=== PATIENT | male | born 1950 | race Two or more races ===

== ENCOUNTER 2025-05-31 13:19 | Emergency (ER) | payer MEDICARE, OTHER, SELFPAY ==
[2025-05-31 13:23] VITALS: BP 156/68
[2025-05-31 13:47] LABS: Hematocrit 42.6 % (39.0-52.0); Hemoglobin 13.5 g/dL (13.0-18.0); Mean Corp Hgb Conc. 31.7 g/dL (33.0-37.0); Mean Corpuscular Volume 87.5 fL (80.0-94.0); Nucleated Red Blood Cells % 0 % (-); Platelet Count 217 10^3/uL (130-400); Red Cell Dist. Width 14.2 % (11.5-14.5)
[2025-05-31 13:57] LABS: ALT (SGPT) 17 U/L (0-50); AST (SGOT) 19 U/L (17-59); Albumin 4.5 g/dl (3.5-5.0); Alkaline Phosphatase 76 U/L (38-126); Blood Urea Nitrogen 17 mg/dl (9-20); Calcium 9.3 mg/dl (8.4-10.2); Carbon Dioxide 20 mmol/L (22-30); Chloride 105 mmol/L (98-107); Glucose 186 mg/dl (70-99); Potassium 4.3 mmol/L (3.5-5.1); Sodium 135 mmol/L (135-145); Total Protein 7.4 g/dl (6.3-8.2); eGFR > 60.00
[2025-05-31 14:02] VITALS: BP 175/74
[2025-05-31 14:06] LABS: Troponin I < 0.012 ng/ml
[2025-05-31 15:00] VITALS: BP 125/67
--- NOTE | 2025-05-31 16:03 | ED.GENMED ---
History of Present Illness
<Angel East PA-C - Last Filed: 05/31/25 16:15>
General
Chief Complaint: Chest Pain
Source: patient
Exam Limitations: none
Time Seen by Provider: 05/31/25 14:40
History of Present Illness
History of Present Illness:
75-year-old male presents complaining of intermittent chest discomfort over the past several days. Today it was made worse prior to eating. He had trouble eating because of this pain. He also has trouble breathing because of his pain. Pain does
not radiate to the back no vomiting. No fever. He has a history of pye-gbpitul-jksxtteta diabetes, GERD. No fevers. No urinary symptoms. No other complaints
Past History
<Angel East PA-C - Last Filed: 05/31/25 16:15>
Past History
ED Past Medical History: GERD, Hypercholesterolemia and NIDDM
Social History
Alcohol: None
Phy Exam
<Angel East PA-C - Last Filed: 05/31/25 16:15>
Physical Exam
Physical Exam:
General: Well-appearing male no acute respiratory distress
HEENT: Normal cephalic atraumatic
Heart: Regular rate and rhythm
Lungs: Clear no wheeze
Abdomen is soft nontender nondistended
Extremities: No cyanosis
Scores
<Efrem Moncada PA-C - Last Filed: 05/31/25 20:59>
Heart Score for Chest Pain Patients
STEMI patient?: No
History: Slightly or Non-Suspicious
ECG: Normal
Age: >/= 65 years
Risk Factors: 1 or 2 Risk Factors
Troponin: </= Normal Limit
Heart Score for Chest Pain Patients: 3
Heart Score Risk: 2.5% MACE over next 6 weeks
Course
<Angel East PA-C - Last Filed: 05/31/25 16:15>
Orders/Labs/Results
Orders:
Orders
05/31/25 13:22
EKG [Electrocardiogram (*1)] Urgent
Reason for Study: Chest Pain
05/31/25 13:23
EKG- Treatment ONCE
05/31/25 13:30
Complete Blood Count/With Diff Urgent
Comprehensive Metabolic Panel Urgent
Lipase Urgent
Comment: ADD ON
Troponin I Urgent
05/31/25 14:52
CT Chest PE Study Urgent
Comment:
Reason For Exam: chest pain
US Abdomen Complete/Upper Urgent
Comment:
Reason For Exam: RUQ pain
05/31/25 16:14
Add On- LAB Urgent
Tests Added?: lipase
05/31/25 16:35
Troponin I Urgent
Abnormal Lab Results
05/31/25
13:30
WBC 11.4 H 10^3/uL
(4.8-10.8)
MCHC 31.7 L g/dL
(33.0-37.0)
MPV 10.7 H fL
(7.4-10.4)
Absolute Neuts (auto) 9.5 H 10^3/uL
(1.4-6.5)
Neutrophils % 83.6 H %
(42.2-75.2)
Lymphocytes % 11.3 L %
(20.5-51.1)
Carbon Dioxide 20 L mmol/L
(22-30)
Glucose 186 H mg/dl
(70-99)
05/31/25 13:30
05/31/25 13:30
Vital Signs
Initial and Last Documented VS:
Initial Vital Signs
Temp Pulse Resp BP Pulse Ox
98.5 F 75 16 156/68 100
05/31/25 13:23 05/31/25 13:23 05/31/25 13:23 05/31/25 13:23 05/31/25 13:23
Last Documented Vital Signs
Temp Pulse Resp BP Pulse Ox
98.5 F 61 20 125/67 99
05/31/25 13:23 05/31/25 17:45 05/31/25 17:45 05/31/25 15:00 05/31/25 17:45
<Efrem Moncada PA-C - Last Filed: 05/31/25 20:59>
Orders/Labs/Results
Orders:
Orders
05/31/25 13:22
EKG [Electrocardiogram (*1)] Urgent
Reason for Study: Chest Pain
05/31/25 13:23
EKG- Treatment ONCE
05/31/25 13:30
Complete Blood Count/With Diff Urgent
Comprehensive Metabolic Panel Urgent
Lipase Urgent
Comment: ADD ON
Troponin I Urgent
05/31/25 14:52
CT Chest PE Study Urgent
Comment:
Reason For Exam: chest pain
US Abdomen Complete/Upper Urgent
Comment:
Reason For Exam: RUQ pain
05/31/25 16:14
Add On- LAB Urgent
Tests Added?: lipase
05/31/25 16:35
Troponin I Urgent
Abnormal Lab Results
05/31/25
13:30
WBC 11.4 H 10^3/uL
(4.8-10.8)
MCHC 31.7 L g/dL
(33.0-37.0)
MPV 10.7 H fL
(7.4-10.4)
Absolute Neuts (auto) 9.5 H 10^3/uL
(1.4-6.5)
Neutrophils % 83.6 H %
(42.2-75.2)
Lymphocytes % 11.3 L %
(20.5-51.1)
Carbon Dioxide 20 L mmol/L
(22-30)
Glucose 186 H mg/dl
(70-99)
05/31/25 13:30
05/31/25 13:30
Vital Signs
Initial and Last Documented VS:
Initial Vital Signs
Temp Pulse Resp BP Pulse Ox
98.5 F 75 16 156/68 100
05/31/25 13:23 05/31/25 13:23 05/31/25 13:23 05/31/25 13:23 05/31/25 13:23
Last Documented Vital Signs
Temp Pulse Resp BP Pulse Ox
98.5 F 61 20 125/67 99
05/31/25 13:23 05/31/25 17:45 05/31/25 17:45 05/31/25 15:00 05/31/25 17:45
<Angel East PA-C - Last Filed: 05/31/25 16:15>
MDM/Problems Addressed
Differential Diagnosis Includes:
Upper abdominal/chest pain. Consider gastritis versus esophagitis versus ACS or biliary colic or PE given difficulty breathing ultrasound abdomen ordered will order PE study as well. Troponin is undetectable. Patient has had intermittent
discomfort to the chest for several days. Would expect this to be elevated if pain was cardiac.
<Angel East PA-C - Last Filed: 05/31/25 16:15>
*Pulse Oximetry
SaO2: 100
Oxygen Mode of Delivery: Room air
<Efrem Moncada PA-C - Last Filed: 05/31/25 20:59>
*Radiology
Radiology exam reviewed: radiology read reviewed
*Pulse Oximetry
Patient hypoxic: no
*Critical Care Note
Total Time (30-74mins, 75-104mins- exclusive of procedures): Not Applicable
<Efrem Moncada PA-C - Last Filed: 05/31/25 20:59>
Patient Management
Escalation/DeEscalation of care consider admission/obs:
Patient received in signout pending CT scan results and repeat troponin
Patient's repeat troponin is within normal limits and undetectable. CT scan of the chest shows no evidence for pulmonary embolism or thoracic aortic dissection. It did however show a right upper lobe pulmonary nodule which was discussed with the
patient and family as well as a printout of CT scan report was provided. At this time patient is stable for discharge home and outpatient management with primary care provider. Discussed return precautions to the ER. Stable for discharge.
ED Attending Note
<Angel East PA-C - Last Filed: 05/31/25 16:15>
-
Portions of this chart may have been created with voice recognition software.� Occasional wrong word or��sound alike� substitutions may have occurred due to the inherent limitations of voice recognition software.
Discharge Plan
Departure
Patient Disposition: Home (Routine Discharge)
Date of Disposition: 05/31/25
Time of Disposition: 17:45
Patient with high blood pressure during this ER visit?: Yes
Discharge Problem:
Chest pain
Instructions: Chest Pain PCP Follow Up
Prescriptions:
No Action
atorvastatin [Lipitor] 10 MG tablet
10 mg PO HS
omeprazole 20 MG capsule,delayed release(DR/EC)
20 mg PO DAILY
aspirin 81 MG tablet,chewable
81 mg PO DAILY
sitagliptin phosphate [Januvia] 100 MG tablet
100 mg PO DAILY
empagliflozin-metformin [Synjardy] 1 EACH tablet
2 ea PO DAILY
Referrals:
Aba Gomez MD [Family Provider, Internal Medicine]
Interventions
Interventions:
*Risk Screen - Suicide Last Done: 05/31/25 13:28
*General Assessment Last Done: 05/31/25 18:14
*Neglect/Abuse Screening Last Done: 05/31/25 13:28
*ED- Fall Risk Assessment Last Done: 05/31/25 18:14
*ED COVID-19 Vaccine History Last Done: 05/31/25 18:14
*Nursing Disposition Last Done: 05/31/25 18:14
ED- Cardiac Assessment Last Done: 05/31/25 16:12
Discharge Date and Time
Discharge Date/Time: 05/31/25 18:15
Print Language: HONDURAN
[2025-05-31 16:45] LABS: Lipase 152 U/L (23-300)
[2025-05-31 17:08] LABS: Troponin I < 0.012 ng/ml
== END 2025-05-31 18:15 | disposition home or self-care (01) ==
LOC: EMR 13:19
PROVIDERS: Emergency Medicine; Physician Assistant Medical; EMERGENCY PHYSICIAN Emergency Medicine; FAMILY PHYSICIAN Internal Medicine
DX: R07.9 Chest pain, unspecified (principal); R03.0 Elevated blood-pressure reading, without diagnosis of hypertension; R91.1 Solitary pulmonary nodule; E11.9 Type 2 diabetes mellitus without complications; E78.00 Pure hypercholesterolemia, unspecified; K21.9 Gastro-esophageal reflux disease without esophagitis; Z79.82 Long term (current) use of aspirin; Z79.84 Long term (current) use of oral hypoglycemic drugs
CPT/HCPCS: 99284; 71275; 76700; 80053; 83690; 84484; 85025; 93005; Q9967